=== PATIENT | female | born 1980 | race Caucasian/White ===

== ENCOUNTER 2024-02-07 21:31 | Emergency (ER) | payer OTHER, BC ==
--- OUTSIDE RECORDS SUMMARY | 2024-02-07 21:35 | XMS REPORT | Clinical Summary ---
Author Name Unknown Organization [facility] [place] Address [address] [place] [address] Care Team Providers Care Nursing Resident Name Role Phone Hyun Small MD Unavailable [phone] Andreea Gonzalez Unavailable [phone] Jacoby Dobbs DO Unavailable [phone] Isai Cole MD Primary Care Provider [phone] Nigel Graham MD Unavailable [phone] Allergies No known active allergies Medications Medication Sig Dispensed Refills Start Date End Date Status buPROPion (WELLBUTRIN) 75 mg tablet Take 2 tablets (150 mg) by mouth daily. Patients states takes only once a day 02/05/2022 Active hydroCHLOROthiaz luciana (HYDRODIURIL) 25 mg tablet Take 1 tablet (25 mg) by mouth daily. 12/14/2021 Active zolpidem (AMBIEN) 10 mg tablet Take 1 tablet (10 mg) by mouth at bedtime. 09/30/2012 Active pantoprazole (Protonix) 40 mg EC tabletIndication s:Gastro-esophag eal reflux disease with ulceration Take 1 tablet (40 mg) by mouth every morning before breakfast for 360 days. 90 tablet 3 01/21/2024 01/15/2025 Active HYDROcodone-acet aminophen (NORCO) 10 mg-325 mg per tabletIndication s:Neoplasm of tongue Take 1 tablet by mouth every 4 (four) hours as needed for moderate pain or severe pain. 40 tablet 01/29/2024 Active lidocaine (lidocaine viscous) 20 mg/mL (2%) viscous solutionIndicati ons:Neoplasm of tongue Swish and spit 5 mL by mouth every 6 (six) hours as needed (oral pain). 100 mL 2 01/29/2024 Active ondansetron (Zofran) 4 mg tabletIndication s:Nausea Take 1 tablet (4 mg) by mouth every 6 (six) hours as needed for nausea or vomiting. 30 tablet 02/04/2024 Active estradiol (ESTRACE) 0.1 mg/g (0.01%) vaginal cream Insert 2 g into the vagina daily. 06/11/2023 01/21/2024 Discontinued (Stop Taking at Discharge) omeprazole (PriLOSEC) 40 MG capsuleIndicatio ns:Esophagitis, not otherwise specified Take 1 capsule (40 mg) by mouth every morning before breakfast for 90 days. 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 Hypertensive disorder 06/17/2023 Encounters Date Type Department Care Team Description 02/04/2024 Orders Only [facility] - Surgical Oncology [address] [place] [address], 10th Floor, Elevator [place] [phone] Citlaly Osborne PA Nausea (Primary Dx) 01/30/2024 Orders Only [facility] - Gastroenterology , Hepatology & Nutrition [address] [place] [address], 7th Floor Elevator [place] [id number] Luis Diaz MD Other esophagitis without bleeding, not otherwise specified (Primary Dx) 01/29/2024 7:00 AM CDT - 01/29/2024 9:20 AM CDT Surgery MAIN OR [address] [place] [address] Isai Cole MD GLOSSECTOMY - LESS THAN 1/2 OF TONGUE 01/29/2024 6:57 AM CDT Anesthesia Event MAIN OR [address] [place] [address] [phone] Lina Arias MD Yi Camilla WILLIAN Dhillon 01/29/2024 4:57 AM CDT - 01/29/2024 11:15 AM CDT Hospital Encounter MAIN OR [address] [place], [place] [id number] Isai Cole MD Neoplasm of tongue Discharge Disposition: Home 01/29/2024 Travel 01/28/2024 4:30 PM CDT POEM Appointments [facility] [address] [place] [address], 6th Floor Ele[address] [place] [phone] Citlaly Osborne PA Neoplasm of tongue 01/28/2024 10:11 AM CDT - 01/28/2024 11:59 PM CDT Hospital Encounter [facility] - Surgical Oncology [address] [place] [address], 10th Floor, [place] [address] Isai Cole MD Neoplasm of tongue Discharge Disposition: Home 01/28/2024 9:56 AM CDT - 01/28/2024 10:10 AM CDT Hospital Encounter [facility] [address] [place] [address], [place] [address] Citlaly Osborne PA Neoplasm of tongue Discharge Disposition: Home 01/28/2024 Documentation MDA TRANSL MOLEC PATH Shavonne Harmony 01/28/2024 Travel 01/27/2024 11:59 PM CDT Anesthesia Event [facility] [address] [place] [address], 6th Floor Ele[address] [place] [phone] Shon Leonardo, BEAD WIRE TAPER 01/21/2024 3:40 PM CDT - 01/21/2024 4:20 PM CDT Surgery [facility] - Endoscopy 0 [facility], Floor [address] [place] [id number] Ro Hutson MD DIAGNOSTIC UPPER GASTROINTESTINAL ENDOSCOPY 01/21/2024 3:33 PM CDT Anesthesia Event [facility] - Endoscopy 0 [facility], Floor 7 [place] [id number] Brock Rangel MD 01/21/2024 2:15 PM CDT - 01/21/2024 4:38 PM CDT Hospital Encounter [facility] - Endoscopy [address] [facility], Floor [address] [place] [phone] Ro Hutson MD Gastro-esophageal reflux disease with ulceration (Primary Dx); Early satiety Discharge Disposition: Home 01/21/2024 Travel 01/20/2024 4:30 PM CDT POEM Appointments [facility] [address] [place] [address], 6th [place] [address] Isai Cole MD 01/18/2024 11:59 PM CDT Anesthesia Event [facility] [address] [place] [address], 6th [place] [address] Meredith Egnlish RN 01/07/2024 Orders Only [facility] - Surgical Oncology [address] [place] [address], 10th Floor, [place] [address] Citlaly Osborne PA Neoplasm of tongue (Primary Dx) 10/20/2023 8:25 AM CDT Anesthesia Event Endoscopy Center [address] [place] [address], 5th [place] [address] Keon Armijo MD Amakwe Uzoigwe, Pamela, CRNA 10/20/2023 8:10 AM CDT - 10/20/2023 8:55 AM CDT Surgery Endoscopy [facility] [address] [place] [address], 5th [place] [address] Ro Hutson MD DIAGNOSTIC UPPER GASTROINTESTINAL ENDOSCOPY 10/20/2023 7:14 AM CDT - 10/20/2023 10:02 AM CDT Hospital Encounter Endoscopy Center [address] [place] [address], 5th [place] [address] Ro Hutson MD Early satiety; Abnormal weight loss Discharge Disposition: Home 10/20/2023 Orders Only [facility] - Gastroenterology , Hepatology & Nutrition [address] [place] [address], 7th [place] [address] Luis Diaz MD Esophagitis, not otherwise specified (Primary Dx) 10/20/2023 Travel 10/17/2023 11:59 PM CDT Anesthesia Event [facility] [address] [place] [address], [facility] [place] [address] Tonia Nelson RN 10/17/2023 4:30 PM CDT POEM Appointments [facility] [address] [place] [address], [address] [place] [address] [place] [address] Isai Cole MD 10/15/2023 2:00 PM CDT Telemedicine [facility] - Gastroenterology , Hepatology & Nutrition [address] [place] [address], [address] [place] [address] [place] [address] Taqueria Hutson MD Ross, William A, MD Early satiety (Primary Dx); Weight loss 10/15/2023 Prep for Surgery [facility] - Gastroenterology , Hepatology & Nutrition [address] [place] [address], [facility] [place] [address] Rand Emanuel PA Early satiety (Primary Dx); Abnormal weight loss 10/15/2023 Orders Only [facility] - Gastroenterology , Hepatology & Nutrition [address] [place] [address], [facility] [place] [address] Rand Emanuel PA Abnormal weight loss (Primary Dx) 07/25/2023 9:00 AM JIVE DEVELOPER Telemedicine MD [facility] [place] - Head & Neck Surgery [address] [place], [place] [phone] Isai Cole MD Mass of tongue 07/25/2023 Telephone Clinical Nutrition For your Nutrition appointment location directions please call: Claudia Aguilera RD Nutrition Consultation Appointment (Called to scheduled an appointment for nutrition consult, no answer, left message and sent a mychart.) 07/25/2023 Orders Only [facility] - Surgical Oncology [address] [facility] Main dg, 10th Floor, [place] [address] Citlaly Osborne PA Weight loss (Primary Dx) 07/25/2023 Telephone MD [facility] [place] - Head & Neck Surgery [address] [place] [id number] Jefferson Andrews, RN 07/25/2023 Telephone MD [facility] [place] - Head & Neck Surgery [address] [place] [phone] Jefferson Andrews, RN 07/25/2023 Travel 07/24/2023 4:00 PM JIVE DEVELOPER Multidisciplinary Visit [facility] - Medical Oncology [address] [facility], 9th [place] [address] Isai Cole MD 07/16/2023 Lab Requisition [facility] Joseph Meneses MD Witson, Anne S., MD 07/10/2023 12:15 PM JIVE DEVELOPER Ancillary Procedure [facility] [address] [place] [address] Citlaly Osborne PA Mass of tongue 07/08/2023 9:00 AM JIVE DEVELOPER Office Visit MD [facility] [place] - Head & Neck Surgery [address] [place] [address] Isai Cole MD Mass of tongue (Primary Dx) 07/08/2023 Travel 07/06/2023 8:28 AM JIVE DEVELOPER - 07/06/2023 11:59 PM JIVE DEVELOPER Hospital Encounter Main CT IMAGING [address] [facility] Main dg, 3rd [place] [address] Citlaly Osborne PA Neoplasm of uncertain behavior of tongue Discharge Disposition: Home 07/06/2023 8:20 AM JIVE DEVELOPER - 07/06/2023 8:27 AM JIVE DEVELOPER Hospital Encounter [facility] [address] [facility] Main [facility], [place] [address] Citlaly Osborne PA Neoplasm of uncertain behavior of tongue Discharge Disposition: Home 07/03/2023 Orders Only MD [facility] [place] - Head & Neck Surgery [address] [place] [address] Citlaly sOborne PA Neoplasm of uncertain behavior of tongue (Primary Dx) 07/02/2023 11:00 AM JIVE DEVELOPER NPR MDA PATIENT ACCESS Isai Cole MD 06/30/2023 Travel after 02/07/2023 Surgical History Surgery Date Site/Laterality Comments GASTRIC BYPASS 06/02/2003 - 06/01/2004 SECTION, LOW TRANSVERSE times 2 HYSTERECTOMY partial NV ESOPHAGOGASTRODUODENOSCOP Y TRANSORAL DIAGNOSTIC 10/20/2023 Esophagus/N/A Procedure: DIAGNOSTIC UPPER GASTROINTESTINAL ENDOSCOPY; Surgeon: Ro Hutson MD; Location: MAIN ENDOSCOPY; Service: GASTROENTEROLOGY NV ESOPHAGOGASTRODUODENOSCOP Y TRANSORAL DIAGNOSTIC 01/21/2024 Esophagus/N/A Procedure: DIAGNOSTIC UPPER GASTROINTESTINAL ENDOSCOPY; Surgeon: Ro Hutson MD; Location: COUNTS [facility]CLUDE [facility] ENDOSCOPY; Service: GASTROENTEROLOGY NV GLOSSECTOMY <ONE-HALF TONGUE 01/29/2024 Mouth/Rig ht Procedure: GLOSSECTOMY - LESS THAN 1/2 OF TONGUE; Surgeon: Isai Cole MD; Location: MAIN OR; Service: [facility] - HEAD & NECK SURGERY Medical History Medical History Date Comments Hypertension 11/30/20 Hyperlipidemia All of my life Depressive disorder 08/31/20 Obstructive sleep apnea Social History Tobacco Use Types Packs/Day Years Used Date Smoking Tobacco: Never Smokeless Tobacco: Never Alcohol Use Standard Drinks/Week Comments Not Currently 0 (1 standard drink = 0.6 oz pur e alcohol) Only drink occasionally Sex and Gender Information Value Date Recorded Sex Assigned at Female 06/27/2023 4:11 PM JIVE DEVELOPER Gender Identity Female 06/27/2023 4:11 PM JIVE DEVELOPER Sexual Orientation Straight 06/27/2023 4: 11 PM JIVE DEVELOPER Job Start Date Occupation Industry Not on file Not on file Not on file Obstetrics History Last Filed Vital Signs Vital Sign Reading Time Taken Comments Blood Pressure 136/86 01/29/2024 11:00 AM CDT Pulse 73 01/29/2024 11:00 AM CDT Temperature 36.5 C (97.7 F) 01/29/2024 1 1:00 AM CDT Respiratory Rate 16 01/29/2024 11:0 0 AM CDT Oxygen Saturation 98% 01/29/2024 11: 00 AM CDT Inhaled Oxygen Concentration - - Weight 108.9 kg (240 lb 1.3 oz) 01/29/2024 5:45 AM CDT Height 161.5 cm (5' 3.58") 07/08/2023 9:05 AM CS T Body Mass Index 41.75 07/08/2023 9:05 AM JIVE DEVELOPER Plan of Treatment Upcoming Encounters Date Type Department Care Team (Late st Contact Info) Description 06/08/2024 2:45 PM JIVE DEVELOPER Follow-Up [facility] - Gastroenterology, Hepatology & Nutrition [address] [place] [address] Main [facility], 7th Floor Elevator A [place], [place] [phone] Ro Hutson MD [address] [place] [phone] [email or web address] Martins MD [address] [place] [address] [phone] [email or web address] Health Maintenance Due Date Last Done Comments COVID-19 Vaccine (2022-2 4 season) 2024 Influenza Vaccine (#1) 2024 Pneumococcal Vaccine: Pediat rics (0 to 5 Years) and At-Risk Patients (6 to 64 Years) Aged Out No longer eligi ble based on patient's age to complete this topic Procedures Procedure Name Priority Date/Time Associated Diagnosis Comments POC GLUCOSE SCREEN Routine 01/29/2024 8:14 AM CDT PATHOLOGY SURGICAL INTERPRETATION Routine 01/29/2024 7:33 AM CDT Neoplasm of tongue POC GLUCOSE SCREEN Routine 01/29/2024 6:42 AM CDT NV GLOSSECTOMY <ONE-HALF TONGUE 01/29/2024 6:27 AM CDT Neoplasm of tongue Special Needs [email or web address] .CBC Routine 01/28/2024 10:06 AM CDT Neoplasm of tongue TYPE AND SCREEN Routine 01/28/2024 10:06 AM CDT Neoplasm of tongue HEMOGLOBIN A1C Routine 01/28/2024 10:06 AM CDT Neoplasm of tongue ELECTROLYTE PANEL Routine 01/28/2024 10:06 AM CDT Neoplasm of tongue COMPLETE BLOOD COUNT W/ DIFFERENTIAL Routine 01/28/2024 10:06 AM CDT Neoplasm of tongue CONFIRM ABORH TYPE Routine 01/28/2024 10:05 AM CDT Neoplasm of tongue PATHOLOGY BIOPSY INTERPRETATION Routine 01/21/2024 3:44 PM CDT Early satiety NV ESOPHAGOGASTRODUODENOSCOP Y TRANSORAL DIAGNOSTIC 01/21/2024 3:23 PM CDT Early satiety Special Needs 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, call COMPLETED PATHOLOGY BIOPSY INTERPRETATION Routine 10/20/2023 8:40 AM CDT Early satiety Abnormal weight loss NV ESOPHAGOGASTRODUODENOSCOP Y TRANSORAL DIAGNOSTIC 10/20/2023 8:15 AM CDT Early satiety Abnormal weight loss Case Notes 10/15 x1 OK per hernan and triage for 10/[address] graham, [facility] and sent mychart to schedule -dc10/15 asking leadership/triage if ok for 10/29, CR under dr graham-fl Special Needs CLOCK SMITHMICHELE LEMONS MRI NECK SOFT TISSUE W WO CONTRAST Routine 07/10/2023 1:10 PM JIVE DEVELOPER Mass of tongue NV LARYNGOSCOPY FLEXIBLE DIAGNOSTIC Routine 07/08/2023 1:49 PM JIVE DEVELOPER Mass of tongue CT SOFT TISSUE NECK W CONTRAST Routine 0 07/06/2023 10:39 AM JIVE DEVELOPER Neoplasm of uncertain behavior of tongue CREATININE Routine 07/06/2023 8:24 AM JIVE DEVELOPER Neoplasm of uncertain behavior of tongue BLOOD UREA NITROGEN Routine 07/06/2023 8:24 AM JIVE DEVELOPER Neoplasm of uncertain behavior of tongue PATHOLOGY OUTSIDE INTERPRETATION Routine 06/18/2023 after 02/07/2023 Results * (ABNORMAL) POC Glucose Screen - Fingerstick (01/29/2024 8:14 AM CDT) Only the most recent of2 resultswithin the time period is included. Glucose Screen 105(H) 70 - 99 mg/dL 01/29/2024 8:15 AM CDT [facility] POC Sample Type Capillary 01/29/2024 8:15 AM CDT [facility] Blood 01/29/2024 8:14 AM CDT 01/29/2024 8:15 AM CDT Narrative [facility] - 01/29/2024 8:15 AM CDT Capillary blood samples, e.g. obtained by fingerstick, may have inaccurate results in patients with decreased peripheral blood flow. Method description: All results are measured using Electrochemistry test methodology. The glucose in the sample mixes with the reagents on the test strip. The reaction produces an electric current. The amount of current produced is proportional to the glucose concentration in the blood. All POC Glucose screen test results, including critical values, must be interpreted and evaluated in the context of the patients' clinical findings. It is recommended to confirm any questionable test results by core lab methodology. Isai Cole MD POCT ORDERABLES - DE VICE [facility] Unless otherwise noted, all lab tests performed by: Division of Pathology and Laboratory Medicine [address] [place] [id number] * Pathology Surgical Interpretation (01/29/2024 7:33 AM CDT) Submitted Clinical History Neoplasm of tongue [D49.0] 02/03/2024 3:20 PM CDT [facility] Diagnosis A. 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 The dorsal mucosa is bright pink, firm and nodular appearing. The specimen is serially sectioned and there is a 0.8 x 0.8 x 0.6 cm krishnamurthy-white firm nodule in the central muscle tissue. The nodule is grossly 0.8 cm from the closest margins. SECTION CODE: A1, anterior tip en face A2, posterior tip en face A3-A8, remaining specimen section from anterior to posterior including the nodule in A4-A6 BM 02/03/2024 3:20 PM CDT [facility] Biomarker Block(s) Block for biomarker testing: A5 Normal block: N/A 02/03/2024 3:20 PM CDT [facility] Disclaimer "Some tests reported here may have been developed and performance characteristics determined by [facility] Pathology and Laboratory Medicine. These tests have not been specifically cleared or approved by the U.S. Food and Drug Administration. If applicable, controls were reviewed and showed appropriate reactivity." 02/03/2024 3:20 PM CDT [facility] Tissue (Tongue, Right) 01/29/2024 7:33 AM CDT 01/29/2024 8:36 AM CDT Isai Cole MD LAB PATHOLOGY [facility] [address] [place] [phone], * (ABNORMAL) .CBC (01/28/2024 10:06 AM CDT) White Blood Cell 6.5 4.1 - 10.5 K/uL 01/28/2024 10:31 AM CDT [facility] Red Blood Cell 4.54 3.99 - 5.46 M/uL 01/28/2024 10:31 AM CDT [facility] Hemoglobin 10.6(L) 12.2 - 15.3 g/dL 01/28/2024 10:31 AM CDT [facility] Hematocrit 33.6(L) 36.4 - 46.8 % 01/28/2024 10:31 AM CDT [facility] Mean Cell Volume 74(L) 82 - 99 fL 01/28/2024 10:31 AM T [facility] Mean Cell Hemoglobin 23.3(L) 26.6 - 33.2 pg 01/28/2024 10:31 AM T [facility] Mean Cell Hemoglobin Concentration 31.5 31.1 - 35.2 g/dL 01/28/2024 10:31 AM T [facility] RDW-SD 43.0 37.5 - 49.7 fL 01/28/2024 10:31 AM [facility] Red Cell Diameter Width 16.1(H) 11.6 - 15.5 % 01/28/2024 10:31 AM T [facility] Platelet 286 160 - 397 K/uL 01/28/2024 10:31 AM T [facility] Mean Platelet Volume 10.7 9.1 - 12.6 fL 01/28/2024 10:31 AM CDT [facility] INRBC 0.0 0.0 - 0.1 /100 WBC 01/28/2024 10:31 AM [facility] Comment: The INRBC (instrument NRBC) value reflects the enumeration of nucleated red blood cells contained in a 200uL sample of whole blood analyzed by the instrument. This value may differ from the NRBC value reported in a manual differential, which is based on a 100 cell differential. Neutrophil % 58.6 43.2 - 72.7 % 01/28/2024 10:31 AM CDT [facility] Lymphocyte % 32.3 16.8 - 46.2 % 01/28/2024 10:31 AM T [facility] Monocyte % 6.6 5.1 - 12.5 % 01/28/2024 10:31 AM T [facility] Eosinophil % 1.7 0.4 - 6.3 % 01/28/2024 10:31 AM [facility] Basophil % 0.6 0.2 - 1.4 % 01/28/2024 10:31 AM T [facility] IGRE % 0.2 0.1 - 1.5 % 01/28/2024 10:31 AM CDT [facility] Comment:The IGRE% includes M etamyelocytes, Myelocytes and Promyelocytes. Neutrophil Abs 3.80 1.95 - 7.25 K/uL 01/28/2024 10:31 AM CDT [facility] Lymphocyte Abs 2.09 1.01 - 3.24 K/uL 01/28/2024 10:31 AM CDT [facility] Monocyte Abs 0.43 0.24 - 0.85 K/uL 01/28/2024 10:31 AM CDT [facility] Eosinophil Abs 0.11 0.02 - 0.50 K/uL 01/28/2024 10:31 AM CDT [facility] Basophil Abs 0.04 0.02 - 0.09 K/uL 01/28/2024 10:31 AM CDT [facility] IG Abs 0.01 0.01 - 0.12 K/uL 01/28/2024 10:31 AM CDT [facility] Blood Peripheral blood specimen / Unknown Venipuncture / Unknown 01/28/2024 10:06 AM CDT 01/28/2024 10:13 AM CDT [facility] RED LAB BLOOD ORDERABLES [facility] Unless otherwise noted, all lab tests performed by: Division of Pathology and Laboratory Medicine [address] [place] [id number] * Type and Screen (01/28/2024 10:06 AM CDT) ABORh A POS 01/28/2024 9:56 AM CDT [facility] ABSC Negative 01/28/2024 9:56 AM CDT [facility] Clot Expiration 01/31/2024 23:59 01/28/2024 9:56 AM CDT [facility] Historical Record Check No History 01/28/2024 9:56 AM CDT [facility] Blood Peripheral blood specimen / Unknown Venipuncture / Unknown 01/28/2024 10:06 AM CDT 01/28/2024 10:13 AM CDT [facility] RED BLOOD BANK TEST ORDE RABLES Performing Organization Address City/[facility]/ZIP Co de Phone Number [facility] Transfusion Services [address] [place] [address] [phone] [place] [address] * Hemoglobin A1c (01/28/2024 10:06 AM CDT) Hemoglobin A1c 5.6 4.3 - 5.6 % 01/28/2024 11:00 AM CDT [facility] Blood Peripheral blood specimen / Unknown Venipuncture / Unknown 01/28/2024 10:06 AM CDT 01/28/2024 10:13 AM CDT Narrative [facility] - 01/28/2024 11:00 AM CDT HbA1c values >=6.5% are diagnostic of diabetes mellitus. Diagnosis should be confirmed by repeat testing. Therapeutic Action suggested: >8.0% HbA1c; Goal of therapy: <7.0% HbA1c [facility] RED LAB BLOOD ORDERABLES [facility] Unless otherwise noted, all lab tests performed by: Division of Pathology and Laboratory Medicine [address] [place] [id number] * Electrolyte Panel (01/28/2024 10:06 AM CDT) Sodium Level 138 136 - 145 mmol/L 01/28/2024 11:31 AM CDT [facility] Potassium Level 3.6 3.4 - 4.5 mmol/L 01/28/2024 11:31 AM CDT [facility] Chloride 103 98 - 107 mmol/L 01/28/2024 11:31 AM CDT [facility] CO2 23 22 - 29 mmol/L 01/28/2024 11:31 AM CDT [facility] Anion Gap 12 4 - 14 mmol/L 01/28/2024 11:31 AM CDT [facility] Blood Peripheral blood specimen / Unknown Venipuncture / Unknown 01/28/2024 10:06 AM CDT 01/28/2024 10:13 AM CDT [facility] RED LAB BLOOD ORDERABLES [facility] Unless otherwise noted, all lab tests performed by: Division of Pathology and Laboratory Medicine [facility] [facility] [place] [address] * Confirm ABORh (01/28/2024 10:05 AM CDT) ABORh Confirm A POS 01/28/2024 10:04 AM CDT [facility] Blood Peripheral blood specimen / Unknown Venipuncture / Unknown 01/28/2024 10:05 AM CDT 01/28/2024 10:13 AM CDT [facility] RED BLOOD BANK TEST ORDE RABLES Performing Organization Address City/[facility]/ZIP Co de Phone Number [facility] Transfusion Services [address] [place] [address] [id number] [place] [address] * Pathology Biopsy Interpretation (01/21/2024 3:44 PM CDT) Only the most recent of2 resultswithin the time period is included. Submitted Clinical History Early satiety [R68.81] 01/25/2024 4:17 PM CDT [facility] Diagnosis A: Gastroesophageal junction, gej biopsy @34cm: Squamous epithelium with reactive changes (including focal parakeratosis). Small fragment of inflamed glandular mucosa with foveolar hyperplasia; no intestinal metaplasia identified. 01/25/2024 4:17 PM CDT [facility] Gross Description A: Gastroesophageal junction, gej biopsy @34cm: Two membranous krishnamurthy-white pieces of tissue measuring 0.1 and 0.4 cm, entirely submitted in A1. GM 01/25/2024 4:17 PM CDT [facility] Biomarker Block(s) NA 01/25/2024 4:17 PM CDT [facility] Disclaimer "Some tests reported here may have been developed and performance characteristics determined by [facility] Pathology and Laboratory Medicine. These tests have not been specifically cleared or approved by the U.S. Food and Drug Administration. If applicable, controls were reviewed and showed appropriate reactivity." 01/25/2024 4:17 PM CDT [facility] Tissue (Gastroesophagea l Junction) 01/21/2024 3:44 PM CDT 01/22/2024 8:07 AM CDT Ro Hutson MD LAB PATHOLOGY ORDER ROWAN [facility] [id number] [place] [address], [place] * MRI Neck Soft Tissue with and without Contrast (07/10/2023 1:10 PM JIVE DEVELOPER) Anatomical Region Laterality Modality Neck Magnetic Resonan ce 07/14/2023 2:49 PM JIVE DEVELOPER Impressions 07/14/2023 3:28 PM JIVE DEVELOPER 1. 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 2. Favoring chronic sinusitis of the right submandibular gland. ACTIONABLE ITEMS/RECOMMENDATIONS*: None. Narrative 07/14/2023 3:28 PM JIVE DEVELOPER FULL RESULT: Examination: MRI NECK SOFT TISSUE W WO CONTRAST on 07/10/2023 1:10 PM. CLINICAL HISTORY: Mass of tongue INDICATION: Spindle cell neoplasm of tongue COMPARISON: Contrast enhanced neck CT from 07/06/2023. PROCEDURE COMMENTS: MRI neck without and with IV contrast was performed. FINDINGS: Within limitation of mild patient's motion: There is interval less bulbous appearance of the eccentric to the right exophytic base of tongue mucosal fullness, which shows a combination of mucosal enhancement as well as hypervascular enhancement. 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 The tongue proper and the remaining pharynx and deep neck soft tissue are unremarkable. Procedure Note Jenny Cortes MD - 07/14/2023 FULL RESULT: Examination: MRI NECK SOFT TISSUE W WO CONTRAST on 07/10/2023 1:10 PM. CLINICAL HISTORY: Mass of tongue INDICATION: Spindle cell neoplasm of tongue COMPARISON: Contrast enhanced neck CT from 07/06/2023. PROCEDURE COMMENTS: MRI neck without and with IV contrast was performed. FINDINGS: Within limitation of mild patient's motion: There is interval less bulbous appearance of the eccentric to the rightexophytic base of tongue mucosal fullness, which shows a combination ofmucosal enhancement as well as hypervascular enhancement. Given the adjacent engorged right pterygoid, parapharyngeal space venousplexus, the draining venous tributaries of the right retromandibular vein,facial vein and external jugular vein persist on the MR with similardegree of hypervascular enhancing component of the base of tongue lesion,this entire trans-spatial process can be slow flow vascular malformation(hemangioma and venous malformation). 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 The tongue proper and the remaining pharynx and deep neck soft tissue areunremarkable. IMPRESSION: 1. The exophytic eccentric to the right base of tongue lesion can be aseparate exophytic mucosal lesion or the hemangioma component of the slowflow venous malformation in the adjacent right parapharyngeal, masticatorspace and within the deep lobe of the right parotid retromandibularvein. 2. Favoring chronic sinusitis of the right submandibular gland. ACTIONABLE ITEMS/RECOMMENDATIONS*: None. 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 Post-operative diagnosis: unchanged Indications: Indications: oncologic staging/assessment of a known neoplasm and direct visualization of the upper aerodigestive tract Pre-Procedure Note: interpreter translator: no Pre-procedure patient condition: alert Procedure Details: Instrument used: flexible fiberoptic laryngoscope Videostroboscopy performed: no Patient preparation: patient ready for procedure, Freddy-Synephrine 1% Topical spray applied to the nasal mucosa for decongestion and Xylocaine 4% Topical spray applied to the nasal mucosa for anesthesia The scope was introduced into the: anterior nares Specimen(s) Removed: Specimen(s) removed: no Estimated Blood Loss: Estimated blood loss: none Post-Procedure Complications: Immediate post-procedure complications: the procedure was terminated without complications Post-Procedure Patient Condition: Post-procedure patient condition: patient tolerated the procedure well with no immediate complications Post-Procedure Disposition: Disposition: discharge to home Comments: The patient was sitting in the clinic chair. The patient was given topical vasoconstrictor and anesthesia in the nose. The fiberoptic laryngoscope was then passed through the nose and into the upper aerodigestive tract without difficulty. There were no abnormalities in the nose. No masses or lesions. The paranasal sinuses are without drainage or obstruction.No masses or lesions in the nasopharynx. The eustacian tubes are symmetric and patent.The soft palate has normal mucosa. The tonsils and base of tongue are without masses. The pharyngeal mucosa is normal.The epiglottis is without lesions or masses.The scope was positioned to visualize the entire larynx. The vocal cords are mobile. The airway is patent. The immediate subglottis is normal. The piriform sinuses are symmetric and without blunting. There are no masses. The posterior pharyngeal wall is normal. There is no aspiration or pooling of secretions. Citlaly RED ENT ORDERABLES [facility] * CT Soft Tissue Neck with Contrast (07/06/2023 10:39 AM JIVE DEVELOPER) Anatomical Region Laterality Modality Neck Computed Tomogra phy 07/07/2023 1:25 PM JIVE DEVELOPER Impressions 07/07/2023 1:44 PM JIVE DEVELOPER Exophytic superior base of tongue to posterior dorsum tongue mucosal lesion at the midline and toward the right side without deep invasion can be correlated for reported spindle cell neoplasm (T2-T3). No adenopathy (N0). ACTIONABLE ITEMS/RECOMMENDATIONS*: None. Narrative 07/07/2023 1:44 PM JIVE DEVELOPER FULL RESULT: Examination: CT SOFT TISSUE NECK W CONTRAST on 07/06/2023 10:39 AM. CLINICAL HISTORY: Neoplasm of uncertain behavior of tongue INDICATION: Spindle cell neoplasm of right tongue COMPARISON: None. TECHNIQUE: CT neck with IV contrast was performed with puffed cheek technique. FINDINGS: Primary Site: Of note, with the puffed cheek technique, the tongue and soft palate are pushed posteriorly against the posterior wall of the nasopharynx and oropharynx. Exophytic homogeneously enhancing mucosal lesion appears to arise from the midline superior posterior base of tongue, extending laterally to the right side of the base of tongue without a deep invasive component. This is between 3 to 4.2 cm with maximal 1 cm in thickness. Bilateral tonsilloliths are present with mild asymmetric more tonsillar tissue on the right is without a deep parapharyngeal invasive lesion. Anterior cortex erosion with periapical lucency surrounding the left central mandibular incisor is noted without deep floor of mouth invasive lesion. There is no discrete right floor of mouth or sublingual space masslike lesion or calcific sialolithiasis. However, the right submandibular gland shows heterogeneous enhancement and internal low attenuation, suggestive of sialoadenitis with sialocele-caliectasis. Lymph Nodes: There is no cervical lymphadenopathy. Distant Sites: Lobular hyperenhancing 1.5 x 1.1 x 1.5 cm (transverse, AP, craniocaudal dimensions right anterior falcine frontal convexity lesion is inseparable from the right side of the superior sagittal dural venous sinus, without hyperostosis or erosion of the inner cortical table of the right frontal bone along the superior posterior wall of the right frontal sinus. 6 mm right posterior parietal bone diploic lytic lesion has no cortical erosion, nonspecific and can be followed. Remaining visualized osseous structures are unremarkable. Evaluation of the lung show no lesions suspicious for metastasis. Other Findings: Major neck vasculatures are patent. Thyroid gland and remaining of the major salivary glands are unremarkable. Procedure Note Jenny Cortes MD - 07/07/2023 FULL RESULT: Examination: CT SOFT TISSUE NECK W CONTRAST on 07/06/2023 10:39 AM. CLINICAL HISTORY: Neoplasm of uncertain behavior of tongue INDICATION: Spindle cell neoplasm of right tongue COMPARISON: None. TECHNIQUE: CT neck with IV contrast was performed with puffed cheektechnique. FINDINGS: Primary Site: Of note, with the puffed cheek technique, the tongue and soft palate arepushed posteriorly against the posterior wall of the nasopharynx andoropharynx. Exophytic homogeneously enhancing mucosal lesion appears to arise from themidline superior posterior base of tongue, extending laterally to theright side of the base of tongue without a deep invasive component. Thisis between 3 to 4.2 cm with maximal 1 cm in thickness. Bilateral tonsilloliths are present with mild asymmetric more tonsillartissue on the right is without a deep parapharyngeal invasive lesion. Anterior cortex erosion with periapical lucency surrounding the leftcentral mandibular incisor is noted without deep floor of mouth invasivelesion. There is no discrete right floor of mouth or sublingual space masslikelesion or calcific sialolithiasis. However, the right submandibular glandshows heterogeneous enhancement and internal low attenuation, suggestiveof sialoadenitis with sialocele-caliectasis. Lymph Nodes: There is no cervical lymphadenopathy. Distant Sites: Lobular hyperenhancing 1.5 x 1.1 x 1.5 cm (transverse, AP, craniocaudaldimensions right anterior falcine frontal convexity lesion is inseparablefrom the right side of the superior sagittal dural venous sinus, withouthyperostosis or erosion of the inner cortical table of the right frontalbone along the superior posterior wall of the right frontal sinus. 6 mm right posterior parietal bone diploic lytic lesion has no corticalerosion, nonspecific and can be followed. Remaining visualized osseousstructures are unremarkable. Evaluation of the lung show no lesions suspicious for metastasis. Other Findings: Major neck vasculatures are patent. Thyroid gland and remaining of themajor salivary glands are unremarkable. IMPRESSION: Exophytic superior base of tongue to posterior dorsum tongue mucosallesion at the midline and toward the right side without deep invasion canbe correlated for reported spindle cell neoplasm (T2-T3). No adenopathy(N0). ACTIONABLE ITEMS/RECOMMENDATIONS*: None. Citlaly RED IMG CT ORDERABLES * BUN (07/06/2023 8:24 AM JIVE DEVELOPER) BUN 12 6 - 23 mg/dL 07/06/2023 9:14 AM JIVE DEVELOPER [facility] Blood Peripheral blood specimen / Unknown Venipuncture / Unknown 07/06/2023 8:24 AM JIVE DEVELOPER 07/06/2023 8:37 AM JIVE DEVELOPER Citlaly RED LAB BLOOD ORDERABLES [facility] Unless otherwise noted, all lab tests performed by: Division of Pathology and Laboratory Medicine [address] [place] [id number] * (ABNORMAL) Creatinine (07/06/2023 8:24 AM JIVE DEVELOPER) Creatinine 1.07(H) 0.51 - 0.95 mg/dL 07/06/2023 9:14 AM JIVE DEVELOPER [facility] eGFR 66 >=60 mL/min/1. 73 sq. m 07/06/2023 9:14 AM JIVE DEVELOPER [facility] Comment: The eGFRcr is calculated with the 2020 CKD-EPI creatinine equation using creatinine, patient's age, and sex for adults 18 years of age and older. Other factors, especially muscle mass, may affect accuracy and need to be considered. According to the Kidney Disease: Improving Global Outcomes (KDIGO) CKD Work Group 2012 Clinical Practice Guideline, chronic kidney disease (CKD) is defined as the abnormalities of kidney structure or function, present for more than 3 months, with implications for health. CKD should be classified by cause, GFR category, and albuminuria category. KDIGO guidelines provide the following GFR categories. Stage / Description / GFR mL/min/1.73 m2: G1* / Normal or high / >= 90 G2* / Mildly decreased / 60-89 G3a / Mildly to moderately decreased / 45-59 G3b / Moderately to severely decreased / 30-44 G4 / Severely decreased / 15-29 G5 / Kidney failure / <15 *In the absence of evidence of kidney damage, neither G1 nor G2 fulfill criteria for CKD. Blood Peripheral blood specimen / Unknown Venipuncture / Unknown 07/06/2023 8:24 AM JIVE DEVELOPER 07/06/2023 8:37 AM JIVE DEVELOPER Citlaly RED LAB BLOOD ORDERABLES [facility] [place] [facility] Unless otherwise noted, all lab tests performed by: Division of Pathology and Laboratory Medicine [address] [place] [id number] * Pathology Outside Interpretation (06/18/2023) Materials Received Accession#, Stained, Block, Unstained Collected Received A. 24:OS19, 13 SS, 1 BLOCKS, 0 USS 06/18/2023 07/16/2023 07/22/2023 9:41 AM [facility] Diagnosis Thirteen outside slides (24:OS19, collected on 06/18/2023) designated: Tongue, right, biopsy (H&E x2, IHC x11): Benign peripheral nerve sheath tumor, compatible with neurofibroma (see comment) SLOAN/AC 07/22/2023 9:41 AM [facility] Comment Sections show bland spindle epithelial proliferation in subepithelial tissue. Scattered mast cells are seen. Surface squamous epithelium shows keratosis and reactive changes. Provided immunohistochemical stains show that the lesional cells are positive for S100, SOX10, and CD34; while negative for desmin, p40, cytokeratin AE1/AE3, GFAP, HMB45, and STAT6. Additionally, SMA shows focal weak staining. Ki-67 proliferation index is less than 1%. Additionally, immunostains performed at [facility] show scattered positivity for NF, while H3.7V19eg5 nuclear expression is retained. No diagnostic features of malignancy are seen the sampled material. The biopsy is relatively superficial. Clinical and radiological correlation is recommended to determine whether the sampling is b2b sales representative. Charge Note: 2 IHC (on unstained slides prepared from the provided block) 07/22/2023 9:41 AM JIVE DEVELOPER [facility] Biomarker Block(s) N/A 07/22/2023 9:41 AM JIVE DEVELOPER [facility] Disclaimer "Some tests reported here may have been developed and performance characteristics determined by [facility] Pathology and Laboratory Medicine. These tests have not been specifically cleared or approved by the U.S. Food and Drug Administration. If applicable, controls were reviewed and showed appropriate reactivity." 07/22/2023 9:41 AM JIVE DEVELOPER [facility] Tissue 06/18/2023 07/16/2023 9:5 3 AM JIVE DEVELOPER Delores Costa MD LAB PATHOLOGY [facility]A [facility] [address] [place] [address], [place] after 02/07/2023 Care Teams Nursing Resident Relationship Specialty Start Date End Date Hyun Small MD [address] [place] [phone] [email or web address] PCP - External Referring Otolaryngology 06/27/23 Andreea Gonzalez FNP [address] [facility] [address] [place] [address] [email or web address] PCP - External Follow Up B 06/27/23 Jacoby Dobbs DO [address] [place] [address] PCP - External Primary Care Provider Family Practice 06/27/23 Isai Cole MD [address] [place] [phone] [email or web address] PCP - General Head and Neck Surgery 06/27/23 Nigel Graham MD [address] [place] [id number] [email or web address] Consulting Physician Gastroenterology, Hepatology and Nutrition 10/15/23
--- NOTE | 2024-02-07 23:06 | EDPHYS ---
Physician Documentation [facility] Name: Lindsey Reaves Age: 43 yrs Sex: Female : 1980 Arrival Date: 02/07/2024 Time: 21:31 Bed 14 Private MD: ED Physician Jey Schmid HPI: 02/06 21:50 This 43 yrs old Female presents to ER via Wheelchair with complaints of Post energy attorney Bleeding. 21:50 The patient presents with bleeding. Onset: The symptoms/episode began/occurred just rn prior to arrival. Duration: The symptoms are continuous, but are steadily getting better. 21:54 Severity of symptoms: At their worst the symptoms were moderate, in the emergency rn department the symptoms have improved. The patient has not experienced similar symptoms in the past. Patient reports tongue mass excised in [place] 1 week ago, sutures were placed, sutures popped 4 days ago but just noticed bleeding that started today from front edge of wound. Reports moderate amount of bleeding that is steadily improving with pressure. Does not take blood thinners.. 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 - Infectious Disease History:: Denies. - Social history:: Smoking status: Patient denies any tobacco usage or history of. Patient/guardian denies using alcohol. - Family history:: not pertinent. - Hospitalizations: : No recent hospitalization is reported. ROS: 21:54 Constitutional: Negative for fever, chills, and weight loss, ENT: Positive for bleeding rn from tongue wound. Cardiovascular: Negative for chest pain, palpitations, and edema, Respiratory: Negative for shortness of breath, cough, wheezing, and pleuritic chest pain, Exam: 21:54 Constitutional: This is a well developed, well nourished patient who is awake, alert, rn appears anxious ENT: + tongue wound, no active bleeding at this time Vital Signs: 21:37 BP 114 / 70; Pulse 69; Resp 19; Temp 96.6(TE); Pulse Ox 100% on R/A; Weight 108.86 kg; tm6 Height 5 ft. 4 in. ; Pain 0/10; 23:26 BP 118 / 70; Pulse 59; Resp 16; Temp 98.1; Pulse Ox 98% on R/A; me1 21:37 Body Mass Index 41.20 (108.86 kg, 162.56 cm) tm6 21:37 Pain Scale: Adult tm6 MDM: 21:41 Patient medically screened. rn 23:04 Differential diagnosis: Bleeding surgical wound. Data reviewed: vital signs, nurses rn notes, and as a result, I will discharge patient. Counseling: I had a detailed discussion with the patient and/or guardian regarding the historical points, exam findings, and any diagnostic results supporting the discharge/admit diagnosis, the need for outpatient follow up, to return to the emergency department if symptoms worsen or persist or if there are any questions or concerns that arise at home. Special discussion: I discussed with the patient/guardian in detail that at this point there is no indication for admission to the hospital. It is understood, however, that if the symptoms persist or worsen the patient needs to return immediately for re-evaluation. ED course: Patient observed here for most 2 hours. Bleeding has stopped since seeing her in triage. Gave her ice water to cause vasoconstriction. Continued observation negative for further bleeding. Will DC home. Return precautions given.. Administered Medications: No medications were administered Disposition Summary: 02/07/24 23:05 Discharge Ordered Notes: Location: Home rn Problem: new rn Symptoms: have improved rn Condition: Stable rn Diagnosis - Post-surgical bleeding of tongue rn Followup: rn - With: Private Physician - When: As needed - Reason: Recheck today's complaints, Re-evaluation by your physician Forms: - Medication Reconciliation Form rn - Antibiotic sport intern - Prescription Opioid Use rn - Patient Portal Instructions rn - Leadership Thank You Letter rn Signatures: Jey Schmid MD MD rn Masterson, Tawney, RN RN 6
--- NOTE | 2024-02-07 23:06 | ER ---
Nurse's Notes [facility] Name: Lindsey Reaves Age: 43 yrs Sex: Female : 1980 Arrival Date: 02/07/2024 Time: 21:31 Bed 14 Private MD: Diagnosis: Post-surgical bleeding of tongue Presentation: 02/06 21:37 Chief complaint: Patient states: surgery last on tongue at [facility], a tm6 growth was removed. This evening, tongue started to bleed, has not been able to get the bleeding to stop. Patient states the stitches busted a few days ago, but the original MD said it was ok. Coronavirus screen: Vaccine status: Patient reports being unvaccinated. Ebola Screen: Patient negative for fever greater than or equal to 101.5 degrees Fahrenheit, and additional compatible Ebola Virus Disease symptoms Patient denies exposure to infectious person. Patient denies travel to an Ebola-affected area in the 21 days before illness onset. No symptoms or risks identified at this time. Initial Sepsis Screen: Does the patient meet any 2 criteria? No. Patient's initial sepsis screen is negative. Does the patient have a suspected source of infection? No. Patient's initial sepsis screen is negative. Risk Assessment: Do you want to hurt yourself or someone else? Patient reports no desire to harm self or others. Onset of symptoms was February 07, 2024. 21:37 Method Of Arrival: Wheelchair tm6 21:37 Acuity: MARIO 4 tm6 Triage Assessment: 21:41 General: Appears uncomfortable, Behavior is calm, cooperative. Pain: Denies pain. EENT: tm6 bleeding from tongue. Reports bleeding from tongue. Neuro: Level of Consciousness is awake, alert, obeys commands, Oriented to person, place, time, situation. Cardiovascular: Patient's skin is warm and dry. Respiratory: Airway is patent Respiratory effort is even, unlabored, Respiratory pattern is regular, symmetrical. GI: No signs and/or symptoms were reported involving the gastrointestinal system. Abdomen is round. : No signs and/or symptoms were reported regarding the genitourinary system. Derm: No signs and/or symptoms reported regarding the dermatologic system. Musculoskeletal: No signs and/or symptoms reported regarding the musculoskeletal system. 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 - Infectious Disease History:: Denies. - Social history:: Smoking status: Patient denies any tobacco usage or history of. Patient/guardian denies using alcohol. - Family history:: not pertinent. - Hospitalizations: : No recent hospitalization is reported. Screenin:00 [facility] ED Fall Risk Assessment (Adult) History of falling in the last 3 months, me1 including since admission No falls in past 3 months (0 pts) Confusion or Disorientation No (0 pts) Intoxicated or Sedated No (0 pts) Impaired Gait No (0 pts) Mobility Assist Device Used No (0 pt) Altered Elimination No (0 pt) Score/Fall Risk Level 0 - 2 = Low Risk Maintained a safe environment, Provided non-skid footwear, Hourly rounding (assess needs \T\ fall precautionary measures) done. Abuse screen: Denies threats or abuse. Nutritional screening: No deficits noted. Tuberculosis screening: No symptoms or risk factors identified. Assessment: 22:00 General: Appears comfortable, well groomed, well developed, well nourished, Behavior is me1 calm, cooperative, appropriate for age, Reports surgery last on tongue at [facility], a growth was removed. This evening, tongue started to bleed, has not been able to get the bleeding to stop. Pain: Denies pain. Neuro: Level of Consciousness is awake, alert, obeys commands, Oriented to person, place, time, situation, Appropriate for age. Cardiovascular: Patient's skin is warm and dry. Respiratory: Airway is patent Respiratory effort is even, unlabored, Respiratory pattern is regular, symmetrical. GI: No signs and/or symptoms were reported involving the gastrointestinal system. : No signs and/or symptoms were reported regarding the genitourinary system. EENT: surgical incision to tongue that is bleeding. . Derm: Skin is intact, is healthy with good turgor, Skin is pink, warm \T\ dry. Musculoskeletal: No signs and/or symptoms reported regarding the musculoskeletal system. Vital Signs: 21:37 BP 114 / 70; Pulse 69; Resp 19; Temp 96.6(TE); Pulse Ox 100% on R/A; Weight 108.86 kg; tm6 Height 5 ft. 4 in. ; Pain 0/10; 23:26 BP 118 / 70; Pulse 59; Resp 16; Temp 98.1; Pulse Ox 98% on R/A; me1 21:37 Body Mass Index 41.20 (108.86 kg, 162.56 cm) tm6 21:37 Pain Scale: Adult 6 ED Course: 21:34 Patient arrived in ED. jj6 21:40 Triage completed. tm6 21:41 Jey Schmid MD is Attending Physician. rn 21:41 Arm band placed on left wrist. tm6 21:50 Radha Boyd, MICHELE is Primary Nurse. me1 22:00 Patient has correct armband on for positive identification. Bed in low position. Call me1 light in reach. Side rails up X2. Provided Education on: POC. Verbalized understanding. . 22:00 No provider procedures requiring assistance completed. me1 23:27 Patient did not have IV access during this emergency room visit. me1 Administered Medications: No medications were administered Medication: 22:00 VIS not applicable for this client. me1 Outcome: 23:05 Discharge ordered by . rn 23:27 Discharged to home ambulatory, with significant other, ri1 23:27 Condition: stable 23:27 Discharge instructions given to patient, significant other, Instructed on discharge instructions, follow up and referral plans. Demonstrated understanding of instructions, follow-up care, 23:27 Patient left the ED. me1 Signatures: Jey Schmid MD MD rn Jeffries, Jennifer 6 Radha Boyd, RN RN ri1 Tamara Card RN RN 6 Corrections: (The following items were deleted from the chart) 23:03 21:37 Chief complaint: Patient states: surgery last on tongue at [facility], me1 a growth was removed. This evening, tongue started to bleed, has not been able to get the bleeding to stop. Patient states the stitches busted a few days ago, but the original MD said it was ok tm6
[2024-02-07 23:33] VITALS: BP 118/70; TEMP 98.1; O2SAT 98
== END 2024-02-07 23:27 | disposition home or self-care (01) ==
LOC: ER 21:31
DX: K91.840 Postprocedural hemorrhage of a digestive system organ or structure following a digestive system procedure (principal)
CPT/HCPCS: 99283